=== PATIENT | male | born 1985 | race Two or more races ===

== ENCOUNTER 2016-08-28 10:02 | Emergency (ER) | payer OTHER ==
[~2016-08-28] VITALS: Ht 180.3 cm; Wt 81.6 kg
[2016-08-28 10:59] VITALS: BP 121/83
== END 2016-08-28 11:30 | disposition home or self-care (01) ==
LOC: ER 10:02
DX: J02.9 Acute pharyngitis, unspecified (principal); H92.03 Otalgia, bilateral
CPT/HCPCS: 71020

== ENCOUNTER 2016-10-21 10:46 | Emergency (ER) | payer OTHER ==
[~2016-10-21] VITALS: Ht 180.3 cm; Wt 77.1 kg
[2016-10-21 11:50] VITALS: BP 126/89
== END 2016-10-21 12:03 | disposition home or self-care (01) ==
LOC: ER 10:46
DX: J02.9 Acute pharyngitis, unspecified (principal)

== ENCOUNTER 2016-11-13 17:10 | Emergency (ER) | payer OTHER ==
[2016-11-13 17:42] VITALS: BP 124/58
== END 2016-11-13 17:56 | disposition home or self-care (01) ==
LOC: ER 17:14
DX: J20.9 Acute bronchitis, unspecified (principal); H00.031 Abscess of right upper eyelid

== ENCOUNTER 2016-12-12 10:44 | Emergency (ER) | payer OTHER ==
[~2016-12-12] VITALS: Ht 180.3 cm; Wt 83.5 kg
[2016-12-12 10:53] VITALS: BP 130/77
== END 2016-12-12 12:02 | disposition home or self-care (01) ==
LOC: ER 10:44
DX: J03.90 Acute tonsillitis, unspecified (principal)

== ENCOUNTER 2017-01-21 17:25 | Emergency (ER) | payer SELFPAY ==
[~2017-01-21] VITALS: Ht 180.3 cm; Wt 81.6 kg
[2017-01-21 17:41] VITALS: BP 146/87
[2017-01-21] MEDS: IPRATROPIUM BROM 0.5 MG/2.5ML INH SOL NEB ONE (19:50)
[2017-01-21] MEDS: ALBUTEROL SULF 2.5 MG/0.5ML(0.5%) NEB SOLN NEB ONE (19:50)
== END 2017-01-21 21:27 | disposition home or self-care (01) ==
LOC: ER 17:39
DX: J20.9 Acute bronchitis, unspecified (principal); J45.909 Unspecified asthma, uncomplicated
CPT/HCPCS: 94640

== ENCOUNTER 2017-04-16 11:56 | Emergency (ER) | payer OTHER ==
[~2017-04-16] VITALS: Ht 180.3 cm; Wt 81.6 kg
[2017-04-16 12:07] VITALS: BP 128/70
== END 2017-04-16 14:08 | disposition home or self-care (01) ==
LOC: ER 11:56
DX: J02.9 Acute pharyngitis, unspecified (principal); K29.00 Acute gastritis without bleeding

== ENCOUNTER 2017-06-27 09:02 | Emergency (ER) | payer OTHER ==
[~2017-06-27] VITALS: Ht 180.3 cm; Wt 83.0 kg
[2017-06-27 09:14] VITALS: BP 142/89
[2017-06-27] MEDS ORDERED: cefTRIAXone SOD 1,000 MG VL IM ONE (11:30)
== END 2017-06-27 11:54 | disposition home or self-care (01) ==
LOC: ER 09:02
DX: J02.9 Acute pharyngitis, unspecified (principal)
CPT/HCPCS: 96372; 99283; J0696

== ENCOUNTER 2017-11-07 08:19 | Emergency (ER) | payer OTHER ==
[~2017-11-07] VITALS: Ht 180.3 cm; Wt 86.2 kg
[2017-11-07 08:24] VITALS: BP 119/85
== END 2017-11-07 08:59 | disposition home or self-care (01) ==
LOC: ER 08:19
DX: J03.90 Acute tonsillitis, unspecified (principal)

== ENCOUNTER 2018-08-15 10:36 | Emergency (ER) | payer OTHER ==
[~2018-08-15] VITALS: Ht 180.3 cm; Wt 81.6 kg
[2018-08-15 11:08] VITALS: BP 144/78
== END 2018-08-15 11:53 | disposition home or self-care (01) ==
LOC: ER 10:36
DX: J02.9 Acute pharyngitis, unspecified (principal)

== ENCOUNTER 2018-10-04 13:58 | Emergency (ER) | payer OTHER ==
[~2018-10-04] VITALS: Ht 180.3 cm; Wt 83.5 kg
[2018-10-04 14:13] VITALS: BP 111/69
== END 2018-10-04 16:12 | disposition home or self-care (01) ==
LOC: ER 14:01
DX: J02.9 Acute pharyngitis, unspecified (principal)

== ENCOUNTER 2018-10-26 09:08 | Emergency (ER) | payer OTHER ==
[~2018-10-26] VITALS: Ht 180.3 cm; Wt 81.6 kg
[2018-10-26 09:33] VITALS: BP 125/59
== END 2018-10-26 10:58 | disposition home or self-care (01) ==
LOC: ER 09:08
DX: J31.2 Chronic pharyngitis (principal); J35.01 Chronic tonsillitis; E78.5 Hyperlipidemia, unspecified

== ENCOUNTER 2018-12-05 10:05 | Emergency (ER) | payer OTHER ==
[~2018-12-05] VITALS: Ht 180.3 cm; Wt 83.9 kg
[2018-12-05 10:25] VITALS: BP 121/86
== END 2018-12-05 12:01 | disposition home or self-care (01) ==
LOC: ER 10:08
DX: J03.90 Acute tonsillitis, unspecified (principal); E78.5 Hyperlipidemia, unspecified

== ENCOUNTER 2019-05-09 09:46 | Emergency (ER) | payer OTHER ==
[~2019-05-09] VITALS: Ht 180.3 cm; Wt 83.5 kg
[2019-05-09 10:32] VITALS: BP 129/85
== END 2019-05-09 11:40 | disposition home or self-care (01) ==
LOC: ER 09:51
DX: J06.9 Acute upper respiratory infection, unspecified (principal); E78.5 Hyperlipidemia, unspecified

== ENCOUNTER → 2019-09-12 | Emergency (ER) | payer OTHER | LOC: ER 15:46 | DX: J02.9 Acute pharyngitis, unspecified (principal); Z53.21 Procedure and treatment not carried out due to patient leaving prior to being seen by health care provider ==

== ENCOUNTER 2019-09-29 09:37 | Emergency (ER) | payer OTHER ==
[~2019-09-29] VITALS: Ht 180.3 cm; Wt 86.2 kg
[2019-09-29 10:16] VITALS: BP 151/90
== END 2019-09-29 11:05 | disposition home or self-care (01) ==
LOC: ER 09:37
DX: J02.9 Acute pharyngitis, unspecified (principal); E78.5 Hyperlipidemia, unspecified

== ENCOUNTER 2019-11-01 10:37 | Emergency (ER) | payer OTHER ==
[~2019-11-01] VITALS: Ht 180.3 cm; Wt 83.9 kg
[2019-11-01 12:28] VITALS: BP 126/86
== END 2019-11-01 13:25 | disposition home or self-care (01) ==
LOC: ER 10:37
DX: J06.9 Acute upper respiratory infection, unspecified (principal)

== ENCOUNTER 2019-11-04 11:31 | Emergency (ER) | payer OTHER ==
[~2019-11-04] VITALS: Ht 180.3 cm; Wt 83.9 kg
[2019-11-04 12:06] VITALS: BP 134/93
== END 2019-11-04 13:04 | disposition home or self-care (01) ==
LOC: ER 11:31
DX: J20.9 Acute bronchitis, unspecified (principal); E78.5 Hyperlipidemia, unspecified

== ENCOUNTER 2020-08-28 17:11 | Inpatient (IN) | payer OTHER ==
[~2020-08-28] VITALS: Ht 180.3 cm; Wt 35.8 kg
[2020-08-28] MEDS ORDERED: SODIUM CHLORIDE 0.9% 1,000 ML IV ONE (17:30)
[2020-08-28] MEDS ORDERED: InsuLIN REG 1unit/0.01ml Soln (100units/ml) IV ONE (17:30)
[2020-08-28] MEDS ORDERED: ONDANSETRON HCL 4 MG/2 ML VIAL IV ONE (17:30)
[2020-08-28 18:46] LABS: Basophils # (auto) 0.1 10 ^3/uL (0-0.2); Basophils % (auto) 0.5 % (0.0-2.0); Eosinophils # (auto) 0 10 ^3/uL (0-0.8); Eosinophils % (auto) 0.1 % (0.0-7.0); Lymphocytes # (auto) 1.9 10 ^3/uL (0.4-5.4); Monocytes # (auto) 0.8 10 ^3/uL (0-1.3); Neutrophils # (auto) 9.6 10 ^3/uL (1.6-8.6)
[2020-08-28 18:48] LABS: Hematocrit 51.4 % (41.0-53.0); Hemoglobin 16.8 g/dL (13.5-17.5); Mean Corpuscular Hemoglobin 27.2 pg (28.0-32.0); Mean Corpuscular Hgb Conc. 32.7 g/dL (32.0-36.0); Mean Corpuscular Volume 83.3 fL (80.0-100.0); Monocytes % (auto) 6.5 % (0.0-12.0); Neutrophils % (auto) 77.9 % (37.0-80.0); Nucleated Red Blood Cells % 0.1 %; Platelet Count (auto) 347 10^3/uL (140-450); Red Blood Cells 6.17 10^6/uL (4.5-5.90); Red Cell Distribution Width 13.5 % (11.8-14.3); White Blood Cell 12.3 10^3/uL (4.4-10.8)
[2020-08-28 19:00] LABS: Albumin 4.5 g/dL (3.4-5.0); Calcium 10.1 mg/dL (8.5-10.1); Potassium 4.3 mmol/L (3.5-5.1)
[2020-08-28 19:08] LABS: BUN/Creatinine Ratio 10.3; Total Protein 9.6 g/dL (6.4-8.2)
[2020-08-28] MEDS ORDERED: NITROGLYCERIN 0.4 MG SL TAB SL PRN (20:00)
[2020-08-28] MEDS ORDERED: INSULIN LANTUS (GLARGINE) 1 /0.01ml (100units/ml) SC ONE (20:00)
[2020-08-28] MEDS ORDERED: ONDANSETRON HCL 4 MG/2 ML VIAL IV PRN (20:00)
[2020-08-28] MEDS ORDERED: DEXTROSE (50%) 50ML SYRG IV PRN (20:00)
[2020-08-28] MEDS ORDERED: MORPHINE SULF INJ 2 MG/ML SYRINGE 1ML IV PRN ×2 (20:00)
[2020-08-28] MEDS ORDERED: InsuLIN R (HUMAN) 100 UNITS in SODIUM CHL 0.9% 99 ML IV SCH (20:00)
[2020-08-28 20:35] LABS: Magnesium 2.4 mg/dL (1.6-2.6); Phosphorus 6.5 mg/dL (2.5-4.90)
[2020-08-28] MEDS ORDERED: InsuLIN REG 1unit/0.01ml Soln (100units/ml) ONE (20:53)
[2020-08-28] MEDS: LACTATED RINGER'S 1,000 ML IV SCH (21:20)
[2020-08-28] MEDS: ACCU-CHEK COMFORT CURVE STRIP VI SCH ×2 (21:20→22:34)
[2020-08-29] MEDS: ACCU-CHEK COMFORT CURVE STRIP VI SCH ×6 (00:23→07:58)
[2020-08-29] MEDS: LACTATED RINGER'S 1,000 ML IV SCH (02:44)
[2020-08-29 07:07] LABS: Basophils # (auto) 0.1 10 ^3/uL (0-0.2); Basophils % (auto) 0.9 % (0.0-2.0); Eosinophils # (auto) 0.2 10 ^3/uL (0-0.8); Eosinophils % (auto) 2.4 % (0.0-7.0); Hemoglobin 14.5 g/dL (13.5-17.5); Lymphocytes # (auto) 3.3 10 ^3/uL (0.4-5.4); Lymphocytes % (auto) 30.9 % (10.0-50.0); Mean Corpuscular Hemoglobin 27.6 pg (28.0-32.0); Mean Corpuscular Hgb Conc. 34.6 g/dL (32.0-36.0); Mean Corpuscular Volume 79.7 fL (80.0-100.0); Monocytes # (auto) 1.2 10 ^3/uL (0-1.3); Neutrophils # (auto) 5.8 10 ^3/uL (1.6-8.6); Neutrophils % (auto) 54.8 % (37.0-80.0); Nucleated Red Blood Cells % 0.1 %; Platelet Count (auto) 244 10^3/uL (140-450); Red Blood Cells 5.26 10^6/uL (4.5-5.90); Red Cell Distribution Width 13.3 % (11.8-14.3); White Blood Cell 10.6 10^3/uL (4.4-10.8)
[2020-08-29 07:41] LABS: Potassium 3.3 mmol/L (3.5-5.1)
[2020-08-29 07:54] LABS: Albumin 3.4 g/dL (3.4-5.0); BUN/Creatinine Ratio 12.1; Bilirubin, Total 0.7 mg/dL (0.2-1.0); Calcium 9.1 mg/dL (8.5-10.1); Magnesium 2.4 mg/dL (1.6-2.6); Phosphorus 2.2 mg/dL (2.5-4.90); Total Protein 7.4 g/dL (6.4-8.2)
[2020-08-29] MEDS ORDERED: DEXTROSE (50%) 50ML SYRG IV PRN (08:45)
[2020-08-29] MEDS ORDERED: POTASSIUM CHL 20 Meq TABLET PO ONE (08:45)
[2020-08-29] MEDS ORDERED: LACTATED RINGER'S 1,000 ML IV SCH (08:45)
[2020-08-29] MEDS ORDERED: ACETAMINOPHEN 325 MG TAB PO PRN (09:30)
[2020-08-29] MEDS ORDERED: INSULIN LANTUS (GLARGINE) 1 /0.01ml (100units/ml) SC SCH (10:00)
[2020-08-29 11:01] LABS: Urine WBC None Seen /hpf (0 - 3)
[2020-08-29 11:21] LABS: Urine Bacteria NONE SEEN /hpf (None Seen); Urine Blood Negative /uL (Negative); Urine Hyaline Cast FEW /lpf (0 - 2); Urine Mucus FEW (None Seen); Urine Specific Gravity 1.035 (1.001-1.035)
[2020-08-29] MEDS ORDERED: InsuLIN REG 1unit/0.01ml Soln (100units/ml) SC SCH (11:30)
[2020-08-29] MEDS ORDERED: ACCU-CHEK COMFORT CURVE STRIP VI SCH (11:30)
[2020-08-29] MEDS ORDERED: POTASSIUM CHL 20MEQ/100ML 100 ML IV ONE (13:15)
[2020-08-29] MEDS ORDERED: CHOL1CAP47 PO (14:28)
[2020-08-29] MEDS ORDERED: ATO40T PO (14:28)
[2020-08-29] MEDS ORDERED: ASPI81CH59 PO (14:28)
[2020-08-29] MEDS ORDERED: GLUC-105 VI (14:28)
[2020-08-29] MEDS ORDERED: FAMO-12 PO (14:28)
[2020-08-29] MEDS ORDERED: POTA10TA51 PO (14:28)
[2020-08-29] MEDS ORDERED: INSU100I49 SC (14:28)
[2020-08-29] MEDS ORDERED: INSLANTI SC (14:28)
[2020-08-29] MEDS ORDERED: CEPH-37 PO (14:31)
[2020-08-29] MEDS ORDERED: NEUTRA PO (14:31)
[2020-08-29 16:02] VITALS: BP 139/85
[2020-08-29] MEDS ORDERED: INSU1INJ19 SC (16:53)
== END 2020-08-29 16:05 | disposition home or self-care (01) | DRG 420 ==
LOC: ER 17:12 → TELE 19:56
PROVIDERS: ADMIT Nurse Practitioner Acute Care; ATTEND Hospitalist
DX: E11.10 Type 2 diabetes mellitus with ketoacidosis without coma (principal); N17.0 Acute kidney failure with tubular necrosis; Z20.822 Contact with and (suspected) exposure to COVID-19; E11.65 Type 2 diabetes mellitus with hyperglycemia; R65.10 Systemic inflammatory response syndrome (SIRS) of non-infectious origin without acute organ dysfunction; F41.9 Anxiety disorder, unspecified; D72.829 Elevated white blood cell count, unspecified; E66.9 Obesity, unspecified; E78.00 Pure hypercholesterolemia, unspecified; E78.5 Hyperlipidemia, unspecified; E86.0 Dehydration; N39.0 Urinary tract infection, site not specified; Z83.3 Family history of diabetes mellitus; Z79.899 Other long term (current) drug therapy; Z79.891 Long term (current) use of opiate analgesic; Z79.84 Long term (current) use of oral hypoglycemic drugs
CPT/HCPCS: 36415; 36600; 71045; 80053; 80061; 81001; 82010; 82805; 82962; 83735; 83930; 84100; 85025; 87426; 93005; 96361; 96365; 96366; 96368; 96372; 96375; G0378; J1815; J2405; J3480